=== PATIENT | male | born 1985 | race Caucasian/White ===

== ENCOUNTER 2021-09-21 05:08 | Inpatient (IN) | payer OTHER ==
[2021-09-21] MEDS ORDERED: Acetaminophen 500 MG Tab PO ONE (05:30)
[2021-09-21] MEDS ORDERED: Dextrose 5%-Lactated Ringers 1,000 ML IV SCH ×2 (06:00→10:45)
[2021-09-21] MEDS ORDERED: cefOXitin 2 GM Vial ONE (07:05)
[2021-09-21] MEDS ORDERED: Succinylcholine 200 MG/10 ML MDV ONE (07:08)
[2021-09-21] MEDS ORDERED: Propofol 200 MG/20 ML SDV ONE (07:08)
[2021-09-21] MEDS ORDERED: Ondansetron 4 MG/2 ML SDV ONE (07:08)
[2021-09-21] MEDS ORDERED: Rocuronium 50 MG/5 ML Vial ONE ×2 (07:08→08:20)
[2021-09-21] MEDS ORDERED: Glycopyrrolate 0.2 MG/ML 5 ML MDV ONE (07:08)
[2021-09-21] MEDS ORDERED: Dexamethasone 4 MG/ML SDV ONE (07:08)
[2021-09-21] MEDS ORDERED: Neostigmine Methylsulfate 1 MG/ML 5 ML Syringe ONE (07:08)
[2021-09-21] MEDS ORDERED: fentaNYL 250 MCG/5 ML SDV ONE ×2 (07:08→07:36)
[2021-09-21] MEDS ORDERED: Lactated Ringers 1,000 ML ONE (07:12)
[2021-09-21] MEDS ORDERED: cefOXitin 2 GM in Sodium Chloride 0.9% 50 ML IV ONE (07:15)
[2021-09-21] MEDS ORDERED: Scopolamine 1.5 MG Transdermal Patch TRDERM SCH (07:30)
[2021-09-21] MEDS ORDERED: Ketamine 24 MG in Sodium Chloride 0.9% 19.76 ML IV SCH (07:30)
[2021-09-21] MEDS ORDERED: Ketamine 500 MG/5 ML MDV IV SCH (07:30)
[2021-09-21] MEDS ORDERED: Scopolamine 1.5 MG Transdermal Patch TRDERM ONE (07:30)
[2021-09-21] MEDS ORDERED: cefOXitin 2 GM Vial IRR ONE (08:32)
[2021-09-21] MEDS ORDERED: Glucagon,Human Recombinant 1 MG Vial IM PRN ×2 (10:01→11:00)
[2021-09-21] MEDS ORDERED: 50% Dextrose in Water 50 ML Syringe IVPUSH PRN ×2 (10:01→11:00)
[2021-09-21] MEDS ORDERED: Insulin Lispro 100 Unit/ML 3 ML KwikPen SUBCUT ONE (10:15)
[2021-09-21] MEDS ORDERED: Cyclobenzaprine 10 MG Tab PO PRN (10:43)
[2021-09-21] MEDS ORDERED: oxyCODONE 5 MG Tab PO PRN (11:00)
[2021-09-21] MEDS ORDERED: Metoclopramide 10 MG/2 ML SDV IVPUSH PRN (11:00)
[2021-09-21] MEDS ORDERED: Ondansetron 4 MG/2 ML SDV IVPUSH PRN (11:00)
[2021-09-21] MEDS ORDERED: Calcium Gluconate 10% 1 GM/10 ML SDV IVPUSH PRN (11:00)
[2021-09-21] MEDS ORDERED: diphenhydrAMINE 50 MG/ML SDV IVPUSH PRN (11:00)
[2021-09-21] MEDS ORDERED: traMADol 50 MG Tab PO PRN (11:00)
[2021-09-21] MEDS ORDERED: hydrOXYzine HCL 100 MG/2 ML SDV IM PRN (11:00)
[2021-09-21] MEDS ORDERED: Acetaminophen 500 MG Tab PO PRN (11:00)
[2021-09-21] MEDS: Pantoprazole 40 MG Vial IVPUSH SCH (11:21)
[2021-09-21] MEDS: Acetaminophen 500 MG Tab PO SCH ×2 (11:21→19:00)
[2021-09-21] MEDS: Lactated Ringers 1,000 ML IV SCH ×2 (12:00→23:09)
[2021-09-21] MEDS: Labetalol 20 MG/4 ML Syringe IVPUSH PRN ×3 (13:45→13:57)
[2021-09-21] MEDS: cefOXitin 2 GM in Sodium Chloride 0.9% 50 ML IV SCH ×2 (14:45→20:14)
[2021-09-21] MEDS: MVI, Adult with Vitamin K 10 ML, Thiamine 200 MG, Zinc/Copper/Manganese/Selenium 1 ML i... IV SCH ×4 (15:38)
[2021-09-21] MEDS: Insulin Lispro 100 Unit/ML 3 ML KwikPen SUBCUT SCH ×2 (16:57→22:03)
[2021-09-21] MEDS: Heparin Sodium 5,000 Units/ML Vial SUBCUT SCH (17:00)
[2021-09-22] MEDS: cefOXitin 2 GM in Sodium Chloride 0.9% 50 ML IV SCH ×4 (01:57→19:43)
[2021-09-22] MEDS: Acetaminophen 500 MG Tab PO SCH ×3 (03:43→19:59)
[2021-09-22] MEDS ORDERED: Iopamidol 612 MG/ML 50 ML SDV PO ONE (03:57)
[2021-09-22] MEDS: Insulin Lispro 100 Unit/ML 3 ML KwikPen SUBCUT SCH ×4 (04:34→21:25)
[2021-09-22] MEDS: Heparin Sodium 5,000 Units/ML Vial SUBCUT SCH ×2 (05:00→18:00)
[2021-09-22] MEDS ORDERED: Ondansetron 4 MG Tab.DIS PO PRN (07:24)
[2021-09-22] MEDS ORDERED: hydrOXYzine HCl 25 MG Tab PO PRN (07:25)
[2021-09-22] MEDS: Celecoxib 200 MG Cap PO SCH ×2 (09:12→21:27)
[2021-09-22] MEDS: SCOPOLAMINE PATCH CHECK TOP SCH (09:13)
[2021-09-22] MEDS: Dextrose 5%-Lactated Ringers 1,000 ML IV SCH (09:14)
--- NOTE | 2021-09-22 09:25 | CR ---
[facility] HISTORY: Postbariatric surgery FINDINGS: Patient swallowed water-soluble contrast. Upright views of the abdomen show no evidence of extravasation or obstruction. There is a surgical drain in the left upper quadrant. IMPRESSION: Status post gastric surgery No extravasation or obstruction seen
--- NOTE | 2021-09-22 10:37 | PN ---
DATE OF SERVICE: 09/22/2021 SUBJECTIVE: Seth is postop day #1. Oral intake 550, output 1500. JOSE drain put out 80 of a light pink drainage. Blood sugars have been since surgery 218, 194, and 153. Pain is controlled per energy protocol. OBJECTIVE: GENERAL: Seth Mckeon is a pleasant 36-year-old male. He is alert and orientated, sitting up in the chair. VITAL SIGNS: TPR is 97.1, 89, 20, blood pressure 167/98. HEENT: Negative. NECK: Supple. HEART: Regular rate and rhythm. LUNGS: Clear. ABDOMEN: Dressings dry and intact. Abdominal binder is on. JOSE drain as above. EXTREMITIES: Without peripheral edema. ASSESSMENT: Diagnostic laparoscopy with: 1. Laparoscopic sleeve gastrectomy. 2. Liver biopsy. 3. Repair of paraesophageal diaphragmatic hernia. POSTOPERATIVE DIAGNOSES: 1. Morbid obesity. 2. Hepatomegaly. 3. Diaphragmatic hernia. 4. Small bowel mesentery, excessively fat laden, unable to mobilize to duodenum. Date of procedure: 09/21/2021. Surgeon: Tremaine Mckeon MD. PLAN: 1. Decrease IV to 100 mL per hour. 2. Dressing off, may shower. 3. Step 2 gastric bypass diet without cereal. 4. Atarax 50 mg p.o. q.4 hours p.r.n. pain. 5. Zofran 4 mg ODT q.4 hours p.r.n. nausea. 6. Communication order written 3 med cups per hour to ensure adequate oral intake, record at bedside. 7. Continue to use incentive spirometer and ambulate. 8. We will evaluate p.r.n. or in a.m. Lauren Mims PA-C /[id number]
[2021-09-22] MEDS: Pantoprazole 40 MG Vial IVPUSH SCH (10:55)
[2021-09-22] MEDS: MVI, Adult with Vitamin K 10 ML, Thiamine 200 MG, Zinc/Copper/Manganese/Selenium 1 ML i... IV SCH ×4 (15:22)
[2021-09-23] MEDS: Dextrose 5%-Lactated Ringers 1,000 ML IV SCH (02:04)
[2021-09-23] MEDS: cefOXitin 2 GM in Sodium Chloride 0.9% 50 ML IV SCH ×2 (02:04→07:28)
[2021-09-23] MEDS: Acetaminophen 500 MG Tab PO SCH (02:11)
[2021-09-23] MEDS: Labetalol 20 MG/4 ML Syringe IVPUSH PRN (02:24)
[2021-09-23] MEDS: Insulin Lispro 100 Unit/ML 3 ML KwikPen SUBCUT SCH ×2 (04:44→10:12)
[2021-09-23] MEDS: Heparin Sodium 5,000 Units/ML Vial SUBCUT SCH (06:04)
[2021-09-23] MEDS: SCOPOLAMINE PATCH CHECK TOP SCH (08:33)
[2021-09-23] MEDS: Celecoxib 200 MG Cap PO SCH (08:33)
[2021-09-23] MEDS ORDERED: Cyanocobalamin (Vitamin B12) 1,000 MCG/ML SDV IM ONE (09:00)
--- NOTE | 2021-09-23 09:49 | DISCH ---
ADMISSION DIAGNOSIS: 1. Morbid obesity. 2. Severe sleep apnea. 3. Type 2 diabetes. 4. Hypertension. DISCHARGE DIAGNOSES: Diagnostic laparoscopy with: 1. Laparoscopic sleeve gastrectomy. 2. Liver biopsy. 3. Repair of paraesophageal diaphragmatic hernia. POSTOPERATIVE DIAGNOSES: 1. Morbid obesity. 2. Hepatomegaly. 3. Diaphragmatic hernia. 4. Small bowel mesentery, excessively fat laden unable to mobilize to duodenum. Date of procedure: 09/21/2021. Surgeon: Tremaine Mckeon MD. HISTORY: Seth Mckeon is a 36-year-old male with longstanding history of morbid obesity and increasing comorbidities. After preoperative evaluation and discussion of possible risks and possible complications, he wished to proceed with surgical procedure. HOSPITAL COURSE: Seth had his surgery on 09/21/2021. He had no operative complications. On postoperative day #1, he was started on a step 2 gastric bypass diet without cereal and on postoperative day #2, his oral intake was adequate. Pain was managed with energy protocol. He received adequate dietary instructions and a vitamin B12 injection. He was able to be discharged to home on postoperative day #2, 09/23/2021. PHYSICAL EXAMINATION: GENERAL: Seth is a pleasant 36-year-old male, height 6 feet 1 inch, weight is 353 pounds, BMI of 46.6. VITAL SIGNS: TPR 97, 71, and 18. Blood pressure 153/95. HEENT: Negative. NECK: Supple. HEART: Regular rate and rhythm. LUNGS: Clear. ABDOMEN: Incisions look good. Sutures intact. JOSE drain will be removed prior to discharge. Abdominal binder has been on. EXTREMITIES: Without peripheral edema. DISPOSITION: Discharged to home. CONDITION: Stable and improving. FOLLOWUP APPOINTMENT: Lauren Mims PA-C, on 10/01/2021 at 10 a.m. HOME MEDICATIONS: 1. Zofran ODT 4 mg p.o. q.4 hours p.r.n. nausea, #30. 2. Celebrex 200 mg b.i.d., #28. 3. Tylenol 1000 mg q.6 hours scheduled for pain. He is to resume his home medications: 1. Hydrochlorothiazide 25 mg p.o. daily. 2. Accupril 20 mg p.o. daily. He is to discontinue taking metformin. DIET: Step 2 gastric bypass diet without cereal until 10/20/2021. He is to drink 8 to 10 glasses of water a day. ACTIVITY: No lifting greater than 10 pounds for [address] for 1 [address] Shower/bathing: May shower. Keep operative site clean and dry. Wear abdominal binder for 2 weeks and then as tolerated. Notify provider if any fever, increased pain, swelling, redness, drainage, nausea, or vomiting. OTHER SPECIAL INSTRUCTIONS: 1. Use incentive spirometer 10 times every hour while awake for 1 week. 2. Check blood sugars 3 times a day, record results and bring results to clinic appointment. 3. Walk 3 minutes for every 1 hour if you are in the car. /[id number]
[2021-09-23] MEDS ORDERED: Pantoprazole 40 MG Vial IVPUSH SCH (10:45)
[2021-09-23] MEDS ORDERED: Pantoprazole 40 MG Tab.CR PO SCH (11:00)
--- NOTE | 2021-09-23 13:52 | OR ---
DATE OF PROCEDURE: 09/21/2021 SURGEON: Tremaine Mckeon MD PREOPERATIVE DIAGNOSIS: Morbid obesity. POSTOPERATIVE DIAGNOSES: 1. Morbid obesity. 2. Marked hepatomegaly. 3. Paraesophageal diaphragmatic hernia. 4. Small bowel mesentery excessively fatty infiltrated with inability to mobilize small bowel to duodenum. OPERATIVE PROCEDURE: Diagnostic laparoscopy with: 1. Laparoscopic sleeve gastrectomy (52508). 2. Jerome-Cut needle liver biopsy (73343). 3. Repair of paraesophageal diaphragmatic hernia (78712). ANESTHESIA: General. CORE LOADER: Mark Spangler MD INDICATIONS FOR PROCEDURE: This is a 36-year-old male presenting with longstanding morbid obesity with progressively worsening comorbidities. Plan after preoperative discussion was to proceed with a duodenal switch. Potential risks of the procedure including bleeding, infection, leaks from various GI tract staple lines as well as possible problems with bowel obstruction, and remote possibility of cardiopulmonary, septic, or hemorrhagic complications leading to were all reviewed with the patient. That we will sometimes need to stage these procedures during the sleeve gastrectomy portion of the duodenal switch initially and then some months later performing the small bowel portion were all reviewed with the patient, and he wishes to proceed. DETAILS OF PROCEDURE: The patient was taken to the operating room and placed in a supine position. After general endotracheal anesthesia was induced, he was converted to a lithotomy position, and a Urrutia catheter was inserted. The abdomen was then prepped and draped. A 20 cm inferior and 5 cm left of the xiphoid process, a transverse incision was made and the peritoneal cavity entered under direct vision with an Optiview trocar and inflated to 15 mmHg with CO2. Laparoscope was then reinserted. No underlying trocar insertion site injuries were seen. Following this, bilateral transversus abdominis plane blocks were placed, and 5 additional trocars were placed across the upper mid abdomen. The patient was noted to have quite marked hepatomegaly with liver being grossly fatty infiltrated. Jerome-Cut needle biopsy was obtained from left lobe of liver. Minimal bleeding from the biopsy sites was controlled with electrocautery. The small bowel was then identified at the ileocecal valve. This was gradually traced backward. At around 250 cm proximal to the ileocecal valve, it became quite evident that the small bowel would not be adequately mobilized both for the duodenal and ileostomy portion of the procedure to be completed today. There was essentially "creeping back" extending up over the mesh of the circumference of the small bowel, and with the small bowel even still well below the level of duodenum, there was extreme tension on upward mobilization of the bowel and the bowel developed some venous stasis and duskiness related to the tension on the mesentery. Given this, decision was made to proceed with a sleeve gastrectomy, i.e., at the first stage of the duodenal switch and defer the duodenal and ileostomy portion of the procedure to a later date. At this point, the liver was retracted anteriorly. The patient was noted to have moderate- sized paraesophageal diaphragmatic hernia. This was reduced, and the peritoneum overlying incised and reflected downwards. The diaphragmatic hernia was then repaired with 0 Ethibond sutures reinforced with PTFE pledgets. Some of the mediastinal lipomatous tissue was then excised as well at this point. The omentum was then divided in the midline along the greater curvature of the stomach with Harmonic scalpel. This dissection was continued proximally through the short gastric vessels including the highest and posterior short gastric vessels. Care was taken to skeletonize the left cecil of the diaphragm so as to avoid leaving any cul-de-sac of the stomach in that region. The pylorus was then marked, and the dissection of the omentum away from the greater curvature of stomach was then completed to a point 2 cm proximal to the pylorus. Line for initial stapling across the abdomen and underlying the area of incisura angularis was then marked out and first 4 firing of the SERINA stapler with un-reinforced black loads, again with care taken to avoid overtightening in area of incisura angularis. Following this, Anesthesia passed a 32-Brazilian suction tube orally, and this was then brought across the esophagogastric junction along the lesser curvature of the stomach and into the antrum. This was then pulled up snugly against the lesser curvature of the stomach and suction applied. Remainder of the sleeve gastrectomy was completed with tube as the template using combination of reinforced black and purple loads. Gastric specimen was then displaced off to the side before being removed at the end of the procedure. The gastrectomy staple line was then inspected and found to be intact. Fibrin sealant was then placed along the length of the staple line with focus of the fibrin sealant being over the area of esophagogastric junction. Some omentum was then sutured up against that area as well with some 3-0 Vicryl stitch. At that point, leak test was accomplished with injection of air into the tube, which had now been placed off suction while the area was irrigated with antibiotic-containing saline solution. No leaks or bleeding was noted. The omentum up against the area of the antrum as well with the fibrin sealant being in place, and at that point, the gastric specimen was retrieved through the left lateral trocar site. A single Jad-Rodriguez drain was then placed into the left lateral trocar site and positioned adjacent to the gastrojejunostomy and from there up into the splenic fossa. Trocars were then sequentially removed. Peritoneal cavity was then deflated and the procedure concluded. The patient was taken to the recovery room in satisfactory condition. Dr. Mark Spangler assisted in this case helping to position the patient, retract structures as needed, as well as suturing and cutting sutures when indicated. His presence improved the patient's safety and decreased the operative time. Tremaine Mckeon MD Job #: [id number]
== END 2021-09-23 10:35 | disposition home or self-care (01) | DRG 621 ==
LOC: JP.SDS 05:08 → EDSTATUS 08:45 → JP.MS 09:50
PROVIDERS: ADMIT Surgery; ATTEND Surgery
PROC: 0DB64Z3 Excision of Stomach, Percutaneous Endoscopic Approach, Vertical (ICD-10-PCS; principal; 2021-09-21)
PROC: 0FB24ZX Excision of Left Lobe Liver, Percutaneous Endoscopic Approach, Diagnostic (ICD-10-PCS; 2021-09-21)
PROC: 0BQT4ZZ Repair Diaphragm, Percutaneous Endoscopic Approach (ICD-10-PCS; 2021-09-21)
DX: E66.01 Morbid (severe) obesity due to excess calories (principal); E11.9 Type 2 diabetes mellitus without complications; I10 Essential (primary) hypertension; R16.0 Hepatomegaly, not elsewhere classified; K44.9 Diaphragmatic hernia without obstruction or gangrene; G47.33 Obstructive sleep apnea (adult) (pediatric); I86.1 Scrotal varices; Z88.2 Allergy status to sulfonamides; Z68.42 Body mass index [BMI] 45.0-49.9, adult; Z98.890 Other specified postprocedural states; Z79.899 Other long term (current) drug therapy; Z79.84 Long term (current) use of oral hypoglycemic drugs
CPT/HCPCS: 36415; 74240; 74240-26; 82947; 83735; 84100; 84443; 86850; 86900; 86901; 88304; 88307; 88313; 94762; A9270-GY; C9113; J0171; J0330; J0694; J1100; J1644; J1790; J1815; J2405; J2704; J2710; J2795; J3010; J3410; J3411; J3420; J3475; J3490; J7030; J7050; J7120; J7121; Q9967